=== PATIENT | male | born 1975 | race Caucasian/White ===

== ENCOUNTER 2025-05-14 06:28 | Day surgery (SDC) | payer OTHER, SELFPAY | END 2025-05-14 13:47 | disposition home or self-care (01) | LOC: GI 06:28 | PROVIDERS: ATTENDING PHYSICIAN Internal Medicine Gastroenterology | DX: Z12.11 Encounter for screening for malignant neoplasm of colon (principal); D12.2 Benign neoplasm of ascending colon | CPT/HCPCS: 45385; 88305 ==